=== PATIENT | female | born 1985 | race Hispanic/Latino ===

== ENCOUNTER 2024-03-30 14:51 | Emergency (ER) | payer OTHER ==
[~2024-03-30] VITALS: Ht 152.4 cm; Wt 76.2 kg
[2024-03-30 14:54] VITALS: BP 151/76
[2024-03-30 15:16] LABS: BASOPHILS # (AUTO) 0.01 K/uL (0.00-0.20); BASOPHILS % (AUTO) 0.1 % (0.0-5.0); EOSINOPHILS # (AUTO) 0.04 K/uL (0.00-0.70); EOSINOPHILS % (AUTO) 0.5 % (0.0-8.0); HEMATOCRIT 29.5 % (36-48); IMMATURE GRANULOCYTE ABSOLUTE 0.04 K/uL (0-1); LYMPHOCYTES % (AUTO) 13.4 % (21.0-51.0); MEAN CORPUSCULAR HGB CONC 28.5 g/dL (32.0-36.0); MEAN CORPUSCULAR VOLUME 66.7 fL (79-99); MONOCYTES # (AUTO) 0.3 K/uL (0.1-1.0); NEUTROPHILS % (AUTO) 81.5 % (40.0-77.0); PLATELET COUNT (AUTO) 194 K/uL (130-400); RED BLOOD CELL COUNT(AUTO) 4.42 MIL/uL (4.00-5.50); RED CELL DISTRIBUTION WIDTH 19.9 % (11.0-15.5); WHITE BLOOD COUNT (AUTO) 7.3 K/uL (4.8-10.8)
[2024-03-30 15:30] LABS: CREATININE 0.8 mg/dL (0.5-1.0); POTASSIUM 3.1 mmol/L (3.5-5.1)
[2024-03-30 15:34] LABS: ALBUMIN 3.5 g/dL (3.5-5.0); BILIRUBIN,TOTAL 0.4 mg/dL (0.2-1.0); TOTAL PROTEIN, SERUM 7.7 g/dL (6.0-8.3)
[2024-03-30 15:49] LABS: APPEARANCE,URINE CLEAR (CLEAR); BILIRUBIN,URINE NEGATIVE (NEGATIVE); COLOR,URINE LIGHT-YELLOW (YELLOW); GLUCOSE, URINE (UA) NEGATIVE (NEGATIVE); KETONES,URINE NEGATIVE (NEGATIVE); LEUKOCYTE ESTERASE ,URINE NEGATIVE Leu/uL (NEGATIVE); NITRATE,URINE NEGATIVE (NEGATIVE); OCCULT BLOOD,URINE NEGATIVE (NEGATIVE); PH,URINE 5.5 (5.0-8.0); PROTEIN,URINE NEGATIVE (NEGATIVE); UROBILINOGEN,URINE 0.2 mg/dL (0.2-1.0)
[2024-03-30 15:50] LABS: ADD UA MICROSCOPIC YES
[2024-03-30 15:51] LABS: HCG,QUALITATIVE URINE NEGATIVE (NEGATIVE); RBC,URINE 0-1 /HPF (0-1); SQUAMOUS EPITHELIAL CELL,UR FEW /HPF (0-2); WBC,URINE 0-1 /HPF (0-1)
[2024-03-30 15:55] LABS: PLATELET MORPHOLOGY LARGE PLTS PRESENT
[2024-03-30] MEDS: FAMOTIDINE 20MG VIAL IV ONE (15:55)
[2024-03-30] MEDS: ONDANSETRON 4MG INJ IVP ONE (15:55)
[2024-03-30 16:00] VITALS: PULSE 94; RESP 16; O2SAT 99
[2024-03-30] MEDS ORDERED: FAMO-136 PO (16:48)
[2024-03-30] MEDS ORDERED: ONDA-243 PO (16:48)
[2024-03-30] MEDS ORDERED: OMEP10CA5 PO (16:48)
[2024-03-30] MEDS: KETOROLAC 30MG VIAL (30MG/ML) IVP ONE (17:06)
== END 2024-03-30 18:45 | disposition home or self-care (01) ==
LOC: EDH 14:51
DX: K29.70 Gastritis, unspecified, without bleeding (principal); D64.9 Anemia, unspecified; I10 Essential (primary) hypertension; Z79.899 Other long term (current) drug therapy; Z90.49 Acquired absence of other specified parts of digestive tract
CPT/HCPCS: 99285; 74176; 96374; 96375; 80053; 83690; 85025; 81001; 81025; 36415; J3490; J2405; J1885